=== PATIENT | female | born 1965 | race Caucasian/White ===

== ENCOUNTER 2024-06-28 11:21 | Emergency (ER) | payer BC ==
[2024-06-28 14:33] VITALS: BP 136/53; PULSE 60
== END 2024-06-28 14:28 | disposition home or self-care (01) ==
LOC: MW.ED 11:21
DX: M71.21 Synovial cyst of popliteal space [Baker], right knee (principal); Z96.651 Presence of right artificial knee joint; Z79.899 Other long term (current) drug therapy; Z88.2 Allergy status to sulfonamides; Z88.8 Allergy status to other drugs, medicaments and biological substances; Z91.048 Other nonmedicinal substance allergy status; Z75.8 Other problems related to medical facilities and other health care
CPT/HCPCS: 93970; 93970-26; 99283; 99284